=== PATIENT | female | born 1935 | race Caucasian/White ===

== ENCOUNTER 2019-02-14 12:42 | Outpatient (CLI) | payer MEDICARE, BC ==
--- NOTE | 2019-02-14 15:28 | RAD ---
3 VIEWS LEFT FOOT: Date: 02/14/19 COMPARISON: None. HISTORY: Left foot pain over the top of her toes. FINDINGS: 3 views of the left foot shows diffuse osteopenia. There is no evidence of acute fracture or dislocat ion. Degenerative changes are seen in the mid foot. Postsurgical changes are seen in the great toe me tatarsal. IMPRESSION: No evidence of acute osseous abnormality. POS: MAGALY
== END 2019-02-14 12:43 | disposition home or self-care (01) ==
LOC: SCSRAD 12:42
PROVIDERS: ATTEND Family Medicine Sports Medicine
DX: M79.672 Pain in left foot (principal)

== ENCOUNTER 2020-04-13 10:53 | Outpatient (CLI) | payer MEDICARE, BC ==
--- NOTE | 2020-04-13 13:35 | CT ---
CT ABDOMEN AND PELVIS WITH ORAL AND IV CONTRAST: 04/13/20 HISTORY: Diverticulitis. Severe epigastric pain. COMPARISON: None. FINDINGS: the lung bases are clear. There is a large hiatal hernia. There are calcified granulomas in the splee n. The spleen, pancreas and adrenal glands are normal. No calcified gallstones are seen. Small low de nsity lesions in the kidneys are likely cysts. No free air, free fluid or lymphadenopathy is seen in the abdomen or pelvis. The small bowel loops ar e not abnormally dilated. There is colonic diverticulosis without pericolonic inflammatory changes to suggest diverticulitis. A normal appearing appendix is present. There are vascular calcifications without evidence of aneurysmal dilatation of the abdominal aorta. T here are degenerative changes in the spine. IMPRESSION: 1. Large hiatal hernia. 2. Colonic diverticulosis without diverticulitis. POS: OFF
== END 2020-04-13 10:54 | disposition home or self-care (01) ==
LOC: SCSCT 10:53
PROVIDERS: ATTEND Internal Medicine
DX: R10.32 Left lower quadrant pain (principal); R13.10 Dysphagia, unspecified; K44.9 Diaphragmatic hernia without obstruction or gangrene; K57.30 Diverticulosis of large intestine without perforation or abscess without bleeding
CPT/HCPCS: 74177; 82565

== ENCOUNTER 2025-06-22 13:44 | Outpatient (CLI) | payer BC, MEDICARE | END 2025-06-22 13:45 | disposition home or self-care (01) | LOC: SCSBT 13:44 | PROVIDERS: ATTEND Family Medicine Sports Medicine | DX: M81.0 Age-related osteoporosis without current pathological fracture (principal); M85.851 Other specified disorders of bone density and structure, right thigh | CPT/HCPCS: 77080 ==